=== PATIENT | male | born 1990 | race Asian ===

== ENCOUNTER 2017-07-20 19:36 | Emergency (ER) | payer OTHER ==
[~2017-07-20] VITALS: Ht 185.4 cm; Wt 118.4 kg
[2017-07-20 21:28] LABS: PLATELET COUNT 134 K/uL (142-355)
[2017-07-20 21:31] LABS: POTASSIUM 5.1 mmol/L (3.6-5.2)
[2017-07-20 22:31] VITALS: BP 159/83; TEMP 100.6
== END 2017-07-20 22:32 | disposition home or self-care (01) ==
LOC: ED 19:36
DX: J06.9 Acute upper respiratory infection, unspecified (principal)
CPT/HCPCS: 36415; 80053; 85027; 87081; 87804; 87880; 96372; 99283; J0696